=== PATIENT | female | born 1960 | race Caucasian/White ===

== ENCOUNTER 2019-12-08 09:54 | Outpatient (CLI) | payer OTHER, SELFPAY ==
--- NOTE | ~2019-12-08 | MM_ITS ---
EXAMINATION: MM screening laina BI w marylou HISTORY: Screening mammogram TECHNIQUE: Craniocaudal and mediolateral oblique 3-D tomosynthesis images were obtained and synthetic 2-D images were generated. CAD analysis was submitted and interpreted. COMPARISON: 11/30/2017 diagnostic right digital mammogram and limited right breast ultrasound are recei suma there are are present in the lower lumbar levels. A response 12/23/2017, 11/24/2016, 11/23/2015 bilateral digital screening mammogram examinations BREAST PARENCHYMAL COMPOSITION: The breasts are heterogeneously dense, which may obscure small masses . FINDINGS: There are 3 biopsy markers on the right; history of prior benign right breast biopsies in 2017. There is no evidence of suspicious mass, calcification, or architectural distortion to suggest malig norma in either breast. There has been no suspicious interval change. IMPRESSION: 1. No mammographic evidence of malignancy. 2. Recommend routine screening mammography in one year. BI-RADS Category 1: Negative Reviewed, dictated and finalized at location A.
== END 2019-12-08 09:55 | disposition home or self-care (01) ==
LOC: ANHIMG 09:56
PROVIDERS: PCP Family Medicine; Visit Provider Physician Assistant
DX: Z12.31 Encounter for screening mammogram for malignant neoplasm of breast (principal)
CPT/HCPCS: 77063; 77067

== ENCOUNTER → 2020-04-19 09:04 | Outpatient (CLI) | payer OTHER, SELFPAY ==
--- NOTE | ~2020-04-19 | MR_ITS ---
EXAMINATION: MR sacroiliac jterrie wo con DATE: 04/19/2020 09:48 INDICATION: Psoriatic arthritis. TECHNIQUE: Magnetic resonance imaging (MRI) of the sacroiliac joints was performed without intravenou s contrast. Sequences included sagittal PD-weighted FS FSE and axial oblique and coronal oblique T1-w eighted FSE and T2-weighted FS FSE. COMPARISON: Sacroiliac joint radiographs 11/17/2018 FINDINGS: There is lumbar dextroscoliosis and severe spondylosis. No fracture. There is mild osteoarthritis of the sacroiliac joints including osteophytes and mild subchondral edema-like marrow signal intensity. No erosions to suggest inflammatory arthropathy. 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 IMPRESSION: 1. Mild osteoarthritis of the sacroiliac joints. No evidence of inflammatory arthropathy. Reviewed, dictated and finalized at location A. IMPRESSION: 1. Mild osteoarthritis of the sacroiliac joints. No evidence of inflammatory ar thropathy.
== END ==
PROVIDERS: PCP Family Medicine; Visit Provider Internal Medicine
DX: L40.50 Arthropathic psoriasis, unspecified (principal); M47.898 Other spondylosis, sacral and sacrococcygeal region
CPT/HCPCS: 72197

== ENCOUNTER 2020-09-26 14:51 | Outpatient (CLI) | payer OTHER, SELFPAY ==
--- NOTE | ~2020-09-26 | DEXA_ITS ---
Bone Density Report Name: Anitra Booth Age: 59 Sex: Female Ethnicity: White Date of : 1960 Indication: osteopenia; prior fracture; postmenopausal Referring Provider: Pavel Veliz Study: Bone densitometry was performed. Exam Date: September 26, 2020 Accession number: [id number] Bone Density: Region BMD T-score Z-score Classification AP Spine (L1, L4) 0.994 -0.4 1.1 Normal Femoral Neck (Left) 0.574 -2.5 -1.1 Osteoporosis Total Hip (Left) 0.821 -1.0 0.1 Normal Total Hip Bilateral Avg 0.832 -0.9 0.2 Normal Femoral Neck (Right) 0.608 -2.2 -0.8 Osteopenia Total Hip (Right) 0.842 -0.8 0.2 Normal World Health Organization criteria for BMD impression classify patients as: Normal (T-score at or above -1.0), Osteopenia (T-score between -1.0 and -2.5), or Osteoporosis (T-score at or below -2.5). 10-year Fracture Risk: FRAX not reported because: Some T-score for Spine Total or Hip Total or Femoral Neck at or below -2.5 Previous Exams: Region Exam Age BMD T-score BMD Change BMD Change Date g/cm2 vs Baseline vs Previous AP Spine(L1, L4) 09/26/2020 59 0.994 -0.4 -0.042(-4.1%)# -0.042(-4.1%)# 12/11/2003 42 1.036 0.0 Total Hip(Left) 09/26/2020 59 0.821 -1.0 -0.008(-1.0%)# -0.008(-1.0%)# 12/11/2003 42 0.830 -0.9 Total Hip(Right) 09/26/2020 59 0.842 -0.8 0.036(4.5%)# 0.036(4.5%)# 12/11/2003 42 0.806 -1.1 *Denotes significance at 95% confidence level, LSC for AP Spine = 0.022 g/cm2, LSC for Total Hip = 0.027 g/cm2 Clinical Information Provided by Patient: Has had a low trauma fracture Has used the following medications: Boniva (i.e. ibandronate), Vitamin D, Calcium Patient maximum height was 67 Menopause Age: 49 Onset of menses at age 14 Number of children 2 Impression: The patient has established osteoporosis, based on the Left Femoral Neck T-score and the existence of a prior fracture. The patient has risk factors, including: previous fracture. No significant bone loss was observed. Discussion: HIGH RISK OF FRACTURE. BONE DENSITY IS UNDESIRABLY LOW AT ONE OR MORE SKELETAL SITES, CONSISTENT WITH POSTMENOPAUSAL OSTEOPOROSIS. This patient's lowest T-score, in a patient who has previously fractured, meets the World Health Organization's (WHO) criteria for severe osteoporosis. In untreated patients, the risk of osteoporotic fracture increases approximately two-fold for each 1.0 SD decrease in T-score. Low bone density is not the only risk fact
== END 2020-09-26 14:52 | disposition home or self-care (01) ==
LOC: ANHIMG 14:52
PROVIDERS: PCP Family Medicine; Visit Provider Family Medicine
DX: M80.00XA Age-related osteoporosis with current pathological fracture, unspecified site, initial encounter for fracture (principal); M85.851 Other specified disorders of bone density and structure, right thigh
CPT/HCPCS: 77080

== ENCOUNTER 2020-10-23 08:36 | Emergency (ER) | payer OTHER, SELFPAY ==
--- NOTE | 2020-10-23 08:41 | ED.GENADULT ---
HPI - General Adult General Chief complaint: Back Pain/Injury Stated complaint: back pain/leg pain Time Seen by Provider: 10/23/20 08:41 Source: patient Mode of arrival: ambulatory Limitations: no limitations History of Present Illness HPI narrative: 59-year-old female patient presents to the [facility] with complaints of right-sided low back pain for the past 5 days. Patient states she does have history of psoriatic arthritis. Patient states that about 5 days ago she was reaching down in the cupboard to get something and felt something pull. Patient states that since then she has been having pain in the right buttock area that radiates down to the leg. Patient states it especially hurts more when she is standing. Patient states she has been trying taking Tylenol and doing a heating pad. Patient states she also called her primary doctor and got a course of steroids and today is the last day on it. Patient states she was starting to feel better and then she watched her granddaughter yesterday did a lot of bending over and picking her up and states that is now flared back up. Related Data Home Medications Medication Instructions Recorded Confirmed calcium carbonate-vitamin D3 600 cap PO 07/12/19 10/02/20 mg calcium-200 unit capsule cyanocobalamin (vitamin B-12) 1,000 mcg PO DAILY 07/12/19 10/02/20 1,000 mcg capsule vitamin E (dl, acetate) 450 mg 1,000 unit PO DAILY 07/12/19 10/02/20 (1,000 unit) capsule loratadine 10 mg capsule 10 mg PO DAILY 12/02/19 10/02/20 omega 3-dsn-mhf-fish oil 60 mg-90 1 cap PO DAILY 12/02/19 10/02/20 mg-500 mg capsule Allergies Allergy/AdvReac Type Severity Reaction Status Date / Time No Known Allergies Allergy Verified 10/02/20 12:41 Review of Systems Review of Systems: Narrative: CONSTITUTIONAL: Denies fever, chills, or sweats. EYES: Denies visual changes, redness, or discharge. ENT: Denies rhinorrhea, congestion, sore throat, or otalgia. CARDIOVASCULAR: Denies chest pain, palpitations, or edema. RESPIRATORY: Denies cough or dyspnea. GASTROINTESTINAL: Denies abdominal pain, nausea, vomiting, or diarrhea. GENITOURINARY: Denies dysuria or hematuria. SKIN: Denies rash or itching. MUSCULOSKELETAL: Positive right-sided back pain, denies joint pain, or myalgia. NEUROLOGIC: Denies headache, numbness, or weakness. PSYCHIATRIC: Denies anxiety or depression. [facility] Past Medical History Medical History (Updated 10/23/20 @ 09:00 by JONNATHAN Ng) Age-related osteoporosis with current pathological fracture, unspecified site, initial encounter for fracture Allergies Arthritis Bartholin's cyst Depression Fibrocystic breast Hemorrhoids Osteoporosis Thyroid disease Surgical History Surgical History H/O breast biopsy Family History Family History Mother Hypertension Family history of cardiovascular disease Family history of lung cancer Father Acute myocardial infarction, Onset Age: 53 Family history of cardiovascular disease Hypertension Family history of coronary artery disease Grandparent Hypertension Family history of cardiovascular disease Cerebrovascular accident Social History Social History Smoking status: Never smoker Alcohol intake: current Comments At the time of my signature I agree with nursing past medical history, surgical, social, and family history. There is no relevant family history pertinent to the presenting complaint. Exam Narrative: Exam Narrative: GENERAL: Well-appearing, well-nourished, and in no acute distress. HEAD: Normocephalic, atraumatic. EYES: PERRLA and EOMI. ENT: Nares clear, no rhinorrhea or epistaxis. Mucous membranes moist. NECK: Supple. No lymphadenopathy CHEST: Clear to auscultation. No respiratory distress. HEART: Regular rate and rhythm. No murmur h
[2020-10-23 08:49] VITALS: BP 160/73; PULSE 72; RESP 16; TEMP 37.2; O2SAT 100
== END 2020-10-23 09:07 | disposition home or self-care (01) ==
PROVIDERS: Emergency Provider Nurse Practitioner Family; PCP Family Medicine
DX: M54.41 Lumbago with sciatica, right side (principal); M81.0 Age-related osteoporosis without current pathological fracture; L40.50 Arthropathic psoriasis, unspecified
CPT/HCPCS: 99213; G0463

== ENCOUNTER 2020-10-30 14:57 | Outpatient (CLI) | payer OTHER, SELFPAY ==
--- NOTE | ~2020-10-30 | XR_ITS ---
EXAMINATION: XR lumbar spine 2-3V DATE: 10/30/2020 15:13 INDICATION: Right-sided low back pain TECHNIQUE: Anteroposterior and lateral views of the lumbar spine, and cone-down lateral view of the l umbosacral junction were obtained. COMPARISON: 11/17/2018 FINDINGS: There are 20 degrees of stable dextroscoliosis of the lumbar spine. There is severe loss of intervertebral disc space height at L2-3 and L3-4, unchanged. Mild loss of intervertebral disc space height is present at L1-2. Bone alignment is normal. There is no fracture. There is [id number] facet osteoarthritis. IMPRESSION: 1. Severe lumbar spondylosis without acute findings or significant interval change. Reviewed, dictated and finalized at location A. IMPRESSION: 1. Severe lumbar spondylosis without acute findings or significant interval barb nge.
== END 2020-10-30 14:58 | disposition home or self-care (01) ==
PROVIDERS: PCP Family Medicine; Visit Provider Physician Assistant
DX: M47.816 Spondylosis without myelopathy or radiculopathy, lumbar region (principal)
CPT/HCPCS: 72100

== ENCOUNTER → 2020-12-10 12:18 | Outpatient (CLI) | payer OTHER, SELFPAY ==
--- NOTE | ~2020-12-10 | MR_ITS ---
EXAMINATION: MR lumbar spine wo con EXAM DATE: 12/10/2020 13:01 INDICATION: M54.41 - Lumbago with sciatica, right side lumbago with sciatica. Right leg pain. States bending injury. Symptoms 8 weeks. TECHNIQUE: Multi-sequential, multiplanar MR images of the lumbar spine were obtained without contrast . Sagittal T1, T2, T2 fat saturation images. Axial T2 weighted images. There is no prior study for comparison. FINDINGS: There is moderate upper lumbar dextroscoliosis. Moderate to severe disc disease at L2-3 and L3-4. Moderate loss of the L1-2 and L5-S1 disc height, mild to moderate at L4-5. The conus medullari s terminates at the T12-L1 level and has normal signal intensity and morphology. Tarlov cyst posteri or to the S2 segment. Scattered small vertebral body hemangiomata. Paraspinal soft tissue is unremark able. Level by level evaluation: T12-L1: Disc does not extend beyond the endplate margin. Facet arthropathy: None. Neural foraminal stenosis: No stenosis. Central canal stenosis: No stenosis. L1-L2: There is a mild to moderate diffuse disc bulge. Facet arthropathy: Mild. Neural foraminal stenosis: Mild left. Central canal stenosis: No stenosis. L2-L3: There is a mild to moderate diffuse disc bulge. Facet arthropathy: Mild to moderate. Neural foraminal stenosis: Moderate left, no right. Central canal stenosis: Mild. L3-L4: There is a mild to moderate diffuse disc bulge. Facet arthropathy: Mild to moderate. Neural foraminal stenosis: Moderate left, mild right. Central canal stenosis: Mild. L4-L5: There is a mild to moderate diffuse disc bulge. Facet arthropathy: Moderate . Ligamentum flavum enlargement. Neural foraminal stenosis: Moderate right, mild to moderate left. Central canal stenosis: Mild to moderate. L5-S1: There is a mild diffuse disc bulge. Facet arthropathy: Mild to moderate right, mild left. Neural foraminal stenosis: Mild to moderate right, mild left. Central canal stenosis: Mild. IMPRESSION: 1. Moderate upper lumbar dextroscoliosis and left neural foraminal stenosis L2-3 and L3-4. 2. Moderate right neural foraminal stenosis at L4-5. 3. Less spondylosis above. Reviewed, dictated and finalized at location A. IMPRESSION: 1. Moderate upper lumbar dextroscoliosis and left neural foraminal stenosis L2 -3 and L3-4. 2. Moderate right neural foraminal stenosis at L4-5. 3. Less spondylosis above.
== END ==
PROVIDERS: PCP Family Medicine; Visit Provider Physician Assistant
DX: M54.41 Lumbago with sciatica, right side (principal); M47.817 Spondylosis without myelopathy or radiculopathy, lumbosacral region; M48.07 Spinal stenosis, lumbosacral region
CPT/HCPCS: 72148

== ENCOUNTER 2020-12-10 14:24 | Outpatient (CLI) | payer OTHER, SELFPAY ==
--- NOTE | ~2020-12-10 | MM_ITS ---
EXAMINATION: MM screening laina BI w marylou HISTORY: Screening TECHNIQUE: Craniocaudal and mediolateral oblique 3-D tomosynthesis images were obtained and synthetic 2-D images were generated. CAD analysis was submitted and interpreted. COMPARISON: No prior mammogram is available for comparison at this institution. BREAST PARENCHYMAL COMPOSITION: Comparison to multiple prior studies sequentially, with oldest review ed study dated 11/23/2015. FINDINGS: There is no evidence of suspicious mass, calcification, or architectural distortion to sugg est malignancy in either breast. There has been no suspicious interval change. IMPRESSION: 1. No mammographic evidence of malignancy. 2. Recommend routine screening mammography in one year. BI-RADS Category 1: Negative Reviewed, dictated and finalized at location A.
== END 2020-12-10 14:25 | disposition home or self-care (01) ==
LOC: ANHIMG 14:25
PROVIDERS: PCP Family Medicine; Visit Provider Family Medicine
DX: Z12.31 Encounter for screening mammogram for malignant neoplasm of breast (principal)
CPT/HCPCS: 77063; 77067

== ENCOUNTER → 2021-12-27 13:43 | Outpatient (CLI) | payer OTHER, SELFPAY ==
--- NOTE | ~2021-12-27 | MR_ITS ---
EXAMINATION: MR hip RT wo con DATE: 12/27/2021 14:42 INDICATION: Low back pain and sciatica. TECHNIQUE: Magnetic resonance imaging (MRI) of the right hip was performed without intravenous contr ast. Sequences included full-field axial PD-weighted FS FSE and T1-weighted FSE, coronal of the pelvi s with PD-weighted FS FSE, T2-weighted FSE and T1-weighted FSE, small field of view of the right hip with axial PD-weighted FS FSE, sagittal PD-weighted FS FSE, coronal PD-weighted FS FSE and coronal T2 weighted FSE. Additional radial T1-weighted FGR oriented orthogonal to the acetabular rim were obt ained for evaluation of the labrum. COMPARISON: Pelvis and bilateral hip radiographs dated 11/17/2018 FINDINGS: Bones/labrum/cartilage: Mild lumbar dextroscoliosis with severe spondylosis. No fracture, avascular necrosis or pathologic ma rrow replacing process. Small tear at the 1:00 position of the anterosuperior glenoid labrum. Mild pa rtial thickness cartilage loss with smooth chondral surface and without degenerative subchondral key ges along the posterior aspect of the joint space. Fluid: Symmetric physiologic amount of fluid within both hip joints. Soft tissues: Normal and symmetric muscle bulk and signal in the pelvis and visualized proximal thighs. Mild tendin opathy without discrete tears at the bilateral gluteus minimus tendons. The iliopsoas, remaining glut eal and proximal hamstring tendons are normal. Limited evaluation of visceral organs of the pelvis is unremarkable. No pathologically enlarged pelvic/inguinal lymphadenopathy. IMPRESSION: 1. Mild lumbar dextroscoliosis with severe spondylosis. 2. Mild right hip osteoarthritis with small tear at the anterosuperior labrum. 3. Mild bilateral gluteus minimus tendinopathy without discrete tear. Reviewed, dictated and finalized at location B.
== END ==
PROVIDERS: PCP Family Medicine
DX: M16.11 Unilateral primary osteoarthritis, right hip (principal); M54.40 Lumbago with sciatica, unspecified side; M41.9 Scoliosis, unspecified
CPT/HCPCS: 73721

== ENCOUNTER 2022-01-08 14:28 | Outpatient (CLI) | payer OTHER, SELFPAY ==
--- NOTE | ~2022-01-08 | MM_ITS ---
EXAMINATION: MM screening laina BI w marylou HISTORY: Screening TECHNIQUE: Craniocaudal and mediolateral oblique 3-D tomosynthesis images were obtained and synthetic 2-D images were generated. CAD analysis was submitted and interpreted. COMPARISON: Comparison to multiple prior studies sequentially, with oldest reviewed study dated 11/22. BREAST PARENCHYMAL COMPOSITION: The breasts are heterogenously dense, which may obscure small masses FINDINGS: There is no evidence of suspicious mass, calcification, or architectural distortion to sugg est malignancy in either breast. There has been no suspicious interval change. IMPRESSION: 1. No mammographic evidence of malignancy. 2. Recommend routine screening mammography in one year. BI-RADS Category 1: Negative Reviewed, dictated and finalized at location A.
== END 2022-01-08 14:29 | disposition home or self-care (01) ==
LOC: ANHIMG 14:29
PROVIDERS: PCP Family Medicine; Visit Provider Family Medicine
DX: Z12.31 Encounter for screening mammogram for malignant neoplasm of breast (principal)
CPT/HCPCS: 77063; 77067

== ENCOUNTER 2022-07-02 08:00 | Outpatient (NON) | payer OTHER, SELFPAY | END 2022-07-02 08:01 | disposition home or self-care (01) | PROVIDERS: PCP Emergency Medicine; Visit Provider Internal Medicine Gastroenterology | DX: K21.9 Gastro-esophageal reflux disease without esophagitis (principal) | CPT/HCPCS: 88305 ==

== ENCOUNTER 2022-07-02 12:20 | Day surgery (SDC) | payer OTHER, SELFPAY ==
[2022-04-21 08:51] VITALS: BMI 21.9
[2022-06-24 11:39] VITALS: BMI 21.0
--- NOTE | 2022-07-01 15:31 | PM.HPGS ---
History of Present Illness History of Present Illness Consent: Risks, benefits, and alternatives have been discussed and questions answered. Patient agrees to proceed with procedure. Chief complaint: Epigastric Pain Narrative: Anitra Booth is a 61 year old female referred for investigation of epigastric pain Review of Systems Review of Systems: All systems reviewed & are unremarkable except as noted in HPI and below PMFSH Past Medical History Medical History Age-related osteoporosis with current pathological fracture, unspecified site, initial encounter for fracture Allergies Arthritis Bartholin's cyst Depression Fibrocystic breast Hemorrhoids Hyperlipidemia Hypothyroidism Osteoporosis Psoriatic arthritis Thyroid disease Surgical History Surgical History H/O breast biopsy Family History Family History Mother Hypertension Family history of cardiovascular disease Family history of lung cancer Father Acute myocardial infarction, Onset Age: 53 Family history of cardiovascular disease Hypertension Family history of coronary artery disease Grandparent Hypertension Family history of cardiovascular disease Cerebrovascular accident Social History Social History Smoking status: Never smoker Second hand tobacco smoke exposure: No Alcohol intake: never Substance use: never Substance use type: does not use Living arrangements: with family Gender identity (if verbalized by the patient): Female Spiritual care concerns: No Meds Home Medications and Allergies Home Medications Medication Instructions Recorded Confirmed Type calcium carbonate 600 mg-vitamin 1 cap PO DAILY 07/12/19 07/02/22 History D3 5 mcg (200 unit) capsule (Calcium 600 + D(3)) cyanocobalamin (vitamin B-12) 1,000 mcg PO DAILY 07/12/19 07/02/22 History 1,000 mcg capsule vitamin E (dl, acetate) 450 mg 1,000 unit PO DAILY 07/12/19 07/02/22 History (1,000 unit) capsule diclofenac sodium 1 % topical gel 2 gm topical QID #100 grams 12/02/19 07/02/22 Rx (Voltaren) loratadine 10 mg capsule 10 mg PO PRN PRN Allergic Symptoms 12/02/19 07/02/22 History omega 4-sla-jtt-fish oil 60 mg-90 1 cap PO DAILY 12/02/19 07/02/22 History mg-500 mg capsule (Fish Oil) levothyroxine 50 mcg tablet See Rx Instructions .Route 09/09/21 07/02/22 Rx .COMPLEX #90 tabs sertraline 50 mg tablet See Rx Instructions .Route 09/09/21 07/02/22 Rx .COMPLEX #90 tabs folic acid 1 mg tablet See Rx Instructions .Route 10/17/21 07/02/22 Rx .COMPLEX #90 tabs methotrexate sodium 2.5 mg tablet See Rx Instructions .Route 10/23/21 07/02/22 Rx .COMPLEX #55 tabs atorvastatin 20 mg tablet See Rx Instructions .Route 12/04/21 07/02/22 Rx .COMPLEX #90 tabs omeprazole 40 mg capsule,delayed See Rx Instructions .Route 01/10/22 07/02/22 Rx release .COMPLEX #90 caps celecoxib 200 mg capsule (Celebrex) 200 mg PO DAILY #90 caps 03/04/22 07/02/22 Rx ibandronate 150 mg tablet (Boniva) 150 mg PO MONTHLY #3 tabs 05/26/22 07/02/22 Rx methocarbamol 750 mg tablet 750 mg PO PRN PRN Pain 06/24/22 07/02/22 History Allergies Allergy/AdvReac Type Severity Reaction Status Date / Time No Known Allergies Allergy Verified 07/02/22 12:51 Exam Const: General: alert Orientation/consciousness: patient oriented x3 Resp: Auscultation: clear to auscultation bilaterally Cardio: Rhythm: regular rhythm GI: GI Palp: Yes Soft to palpation and No Tenderness to palpation present (GI) Neuro: General: patient oriented x3 Assessment and Plan Assessment and plan (1) Epigastric pain: Code(s): R10.13 - Epigastric pain Status: Acute Assessment and Plan: EGD with possible biopsy or dilatation or cautery.
--- NOTE | 2022-07-02 08:50 | WPDANESEPPF ---
Anes - Initial Pre Proc Eval Procedure: Operation Date: 07/02/22 14:00 Proposed Procedures p Esophagogastroduodenoscopy - Cullen Eaton MD Date/Time: 07/02/22 08:50 Surgeon: Cullen Eaton MD Pre Op Diagnosis: Epigastric Pain Patient Data Age: 61 Gender: F Height: 1.7 m Weight: 61 kg Allergies Allergy/AdvReac Type Severity Reaction Status Date / Time No Known Allergies Allergy Verified 07/02/22 12:51 Home Medications Medication Instructions Recorded Confirmed Type calcium carbonate 600 mg-vitamin 1 cap PO DAILY 07/12/19 07/02/22 History D3 5 mcg (200 unit) capsule (Calcium 600 + D(3)) cyanocobalamin (vitamin B-12) 1,000 mcg PO DAILY 07/12/19 07/02/22 History 1,000 mcg capsule vitamin E (dl, acetate) 450 mg 1,000 unit PO DAILY 07/12/19 07/02/22 History (1,000 unit) capsule diclofenac sodium 1 % topical gel 2 gm topical QID #100 grams 12/02/19 07/02/22 Rx (Voltaren) loratadine 10 mg capsule 10 mg PO PRN PRN Allergic Symptoms 12/02/19 07/02/22 History omega 7-njv-dwn-fish oil 60 mg-90 1 cap PO DAILY 12/02/19 07/02/22 History mg-500 mg capsule (Fish Oil) levothyroxine 50 mcg tablet See Rx Instructions .Route 09/09/21 07/02/22 Rx .COMPLEX #90 tabs sertraline 50 mg tablet See Rx Instructions .Route 09/09/21 07/02/22 Rx .COMPLEX #90 tabs folic acid 1 mg tablet See Rx Instructions .Route 10/17/21 07/02/22 Rx .COMPLEX #90 tabs methotrexate sodium 2.5 mg tablet See Rx Instructions .Route 10/23/21 07/02/22 Rx .COMPLEX #55 tabs atorvastatin 20 mg tablet See Rx Instructions .Route 12/04/21 07/02/22 Rx .COMPLEX #90 tabs omeprazole 40 mg capsule,delayed See Rx Instructions .Route 01/10/22 07/02/22 Rx release .COMPLEX #90 caps celecoxib 200 mg capsule (Celebrex) 200 mg PO DAILY #90 caps 03/04/22 07/02/22 Rx ibandronate 150 mg tablet (Boniva) 150 mg PO MONTHLY #3 tabs 05/26/22 07/02/22 Rx methocarbamol 750 mg tablet 750 mg PO PRN PRN Pain 06/24/22 07/02/22 History Patient hx anesthesia problems: none Family hx anesthesia problems: none Results Review: All pre-operative results and documents have been reviewed as part of the pre-operative evaluation. [facility] Past Medical History Medical History (Updated 07/02/22 @ 08:51 by Jovany Fink, ) Age-related osteoporosis with current pathological fracture, unspecified site, initial encounter for fracture Allergies Arthritis Bartholin's cyst Depression Fibrocystic breast Hemorrhoids Hyperlipidemia Hypothyroidism Osteoporosis Psoriatic arthritis Thyroid disease Surgical History Surgical History H/O breast biopsy Family History Family History Mother Hypertension Family history of cardiovascular disease Family history of lung cancer Father Acute myocardial infarction, Onset Age: 53 Family history of cardiovascular disease Hypertension Family history of coronary artery disease Grandparent Hypertension Family history of cardiovascular disease Cerebrovascular accident Social History Social History Smoking status: Never smoker Second hand tobacco smoke exposure: No Alcohol intake: never Substance use: never Substance use type: does not use Living arrangements: with family Gender identity (if verbalized by the patient): Female Spiritual care concerns: No Anes - Eval Final PreProcedure Day of Procedure 07/02/22 08:50 Patient weight: normal Heart: regular rate and rhythm Lungs: clear to auscultation and normal air movement Airway: Mallampati scale class II Neurological: alert and oriented Last oral intake: >/= 8 hours ASA classification: II Emergent: no Anesthetic plan: proceed Anesthesia type and monitoring: general GIVS and standard monitoring Results Review: All pre-operative results and doc
[2022-07-02 12:50] VITALS: BP 131/66; PULSE 70; RESP 20; TEMP 36.1; O2SAT 100
[2022-07-02] MEDS: LACTATED RINGERS 1,000 ML 150 ML IV CONT (13:07)
[2022-07-02 14:23] VITALS: BP 131/83; PULSE 83; RESP 16; O2SAT 99
--- NOTE | 2022-07-02 14:31 | WPDANESPN ---
Anes - Prog Note Post-Op Date/Time: 07/02/22 14:31 Cardiovascular status: normal Respiratory status: normal Airway patency: baseline Mental status: baseline Post-Op hydration status: normal Vital Signs: Last Vital Signs Temp 36.1 C L 07/02/22 12:50 Pulse 70 07/02/22 12:50 Resp 20 07/02/22 12:50 BP 131/66 07/02/22 12:50 Pulse Ox 100 07/02/22 12:50 O2 Del Method Room Air 07/02/22 12:50 Pain Score (VAS): 0 I/O: Intake & Output 07/01/22 07/02/22 07/02/22 23:59 07:59 15:59 Intake Total 800 Balance 800 Post-procedural complaints: none Patient Feedback: Patient satisfied with anesthetic care. Other Findings: Patient vital signs back to baseline. Patient denies nausea and vomiting. Patient's pain under control. Patient OK for discharge.
[2022-07-02 14:33] VITALS: BP 141/89; PULSE 69; RESP 14; O2SAT 99
[2022-07-02 14:43] VITALS: BP 140/67; PULSE 67; RESP 15; O2SAT 98
== END 2022-07-02 15:08 | disposition home or self-care (01) ==
PROVIDERS: PCP Emergency Medicine; Visit Provider Internal Medicine Gastroenterology
PROC: 0DJ08ZZ Inspection of Upper Intestinal Tract, Via Natural or Artificial Opening Endoscopic (ICD-10-PCS; CPT 43235; principal; 2022-07-02 14:00)
DX: K21.9 Gastro-esophageal reflux disease without esophagitis (principal)
CPT/HCPCS: 43239

== ENCOUNTER 2022-07-19 16:15 | Emergency (ER) | payer OTHER, SELFPAY ==
--- NOTE | ~2022-07-19 | CT_ITS ---
EXAMINATION: CT brain wo con DATE: 07/20/2022 02:25 INDICATION: severe new onset bilat KENNY . TECHNIQUE: Computed tomography (CT) of the head was performed without intravenous contrast. The mA wa s adjusted according to patient size. Iterative reconstruction technique was employed. The dose-lengt h product was 605.33 mGy-cm. COMPARISON: None. FINDINGS: No acute intracranial hemorrhage or extra-axial fluid collection. No hydrocephalus, mass, or herniation. No acute ischemic infarct. Unremarkable dural venous sinus attenuation. No acute osseous abnormality. The aerated spaces are clear. IMPRESSION: No acute intracranial process. Reviewed, dictated and finalized at location K. D GUIDANCE COUNSELOR
--- NOTE | ~2022-07-19 | CT_ITS ---
EXAMINATION: CTA chest PE protocol DATE: 07/20/2022 02:26 INDICATION: elevated dimer 0.59, medial CP radiating into jaw TECHNIQUE: Computed tomography angiography (CTA) of the chest was performed with 100 mL Omnipaque-350 intravenous contrast timed to evaluate the pulmonary arteries. Coronal maximum intensity projection 3D-reconstructions were created by the technologist. The dose-length product (DLP) was 154.64 mGy-cm. Automated exposure control and iterative reconstruction technique were employed. COMPARISON: 11/02/2014 and 07/17/2014, x-ray chest 07/19/2022. FINDINGS: Lung parenchyma and airways: Dependent atelectasis. Pleura: Unremarkable. Thoracic inlet, axillae and chest wall: Unremarkable. Thoracic aorta: Mild arch ectasia. Mediastinum: Normal. Heart and pericardium: Normal. Coronary artery calcifications: Absent. Upper abdomen: No significant finding. Bones: No acute osseous finding. Incidental small left adrenal myelolipoma. Pulmonary arteries: Study quality: Adequate. No pulmonary emboli detected. IMPRESSION: No CT evidence of acute pulmonary embolus. Reviewed, dictated and finalized at location K. FABRICATING MACHINE TENDER
--- NOTE | ~2022-07-19 | XR_ITS ---
EXAMINATION: XR chest 2V Exam Date/Time: 07/19/2022 17:33 PIPER INSTALLER HISTORY: CP, HEAD JAW PAIN, HIGH BLOOD PRESSURE FOR 1 DAY. Comparison: 06/06/2015. RESULT: Lines, tubes, and devices: Biopsy markers in the right breast. Lungs and pleura: Emphysematous/senescent change in the lungs. Cardiomediastinal silhouette: Stable. Other: No acute osseous or upper abdominal finding. IMPRESSION: No acute cardiopulmonary process. Reviewed, dictated and finalized at location K. R INSTALLER
--- NOTE | 2022-07-19 16:16 | ECG_ITS ---
Measurements Intervals [place] Rate: 76 P: 36 [place]: 126 QRS: 73 QRSD: 88 T: 69 QT: 391 QTc: 441 Interpretive Statements SINUS RHYTHM WITH SINUS ARRHYTHMIA POSSIBLE RIGHT VENTRICULAR CONDUCTION DELAY BORDERLINE ECG NO PREVIOUS ECG AVAILABLE FOR COMPARISON Electronically Signed On 07-20-2022 15:40:57 [employer]LY[employer] by Josh Young M.D.
[2022-07-19 16:41] LABS: Basophils Absolute Auto 0.1 K/mm3 (0.0-0.1); Basophils Percent Auto 0.9 % (0.2-1.2); Eosinophils Absolute Auto 0.1 K/mm3 (0-0.3); Eosinophils Percent Auto 1.1 % (0-4.4); Hematocrit 45.5 % (37.0-47.0); Hemoglobin 15.3 g/dL (12.0-15.0); Immature Granulocyte Absolute 0.03 K/mm3 (0.00-0.031); Immature Granulocyte Percent A 0.3 % (0-0.5); Lymphocytes Absolute Auto 2.32 K/mm3 (0.9-3.2); Lymphocytes Percent Auto 26.2 % (18.3-44.2); Mean Corpuscular HGB Conc 33.6 g/dl (32-36); Mean Corpuscular Hemoglobin 31.7 pg (26-34); Mean Corpuscular Volume 94.2 fl (80-100); Mean Platelet Volume 10.1 fl (7.4-10.4); Monocytes Absolute Auto 0.7 K/mm3 (0.1-0.6); Monocytes Percent Auto 8.2 % (2.6-8.5); Neutrophils Absolute Auto 5.6 K/mm3 (1.3-6.7); Neutrophils Percent Auto 63.3 % (45.5-73.1); Platelet Count Result 270 k/mm3 (150-375); Red Blood Count 4.83 M/mm3 (4.2-5.4); White Blood Count 8.9 K/mm3 (4.5-10.0)
[2022-07-19 16:50] LABS: Alanine Aminotransferase 28 U/L (6-35); Albumin Level 4.8 g/dL (3.5-5.1); Alkaline Phosphatase 85 U/L (38-126); Anion Gap 8 mmol/L (8-16); Aspartate Amino Transferase 24 U/L (14-36); Bilirubin,Total 0.4 mg/dL (0.2-1.3); Blood Urea Nitrogen 25 mg/dL (7-17); Calcium 10.1 mg/dL (8.4-10.2); Carbon Dioxide 25 mmol/L (22-30); Chloride 102 mmol/L (98-107); Estimated Glomerular Filt Rate > 60; Glucose 101 mg/dL (65-110); Lipase 83 U/L (23-300); Potassium 3.5 mmol/L (3.4-5.0); Sodium 135 mmol/L (137-145)
[2022-07-19 16:59] VITALS: BP 175/99; PULSE 78; RESP 20; TEMP 37; O2SAT 100
[2022-07-19 17:02] LABS: Troponin I < 0.012 ng/mL (0.000-0.034)
[2022-07-19 17:23] LABS: Prothrombin Time 12.6 Seconds (11.1-14.7)
[2022-07-19 17:24] LABS: Partial Thromboplastin Time 25.5 SECONDS (22.3-36.8)
[2022-07-19 19:21] VITALS: BP 152/93; PULSE 74; RESP 16; O2SAT 99
[2022-07-19 21:21] VITALS: BP 147/67; PULSE 77; RESP 18; O2SAT 97
[2022-07-19 22:07] LABS: Troponin I < 0.012 ng/mL (0.000-0.034)
--- NOTE | 2022-07-20 01:00 | ED.CHESTPAIN ---
HPI - Chest Pain General Chief Complaint: Chest Pain Stated Complaint: chest pain Time Seen by Provider: 07/20/22 00:30 History of Present Illness HPI narrative: Patient is a 61-year-old female here for evaluation of chest pain today. Patient states that while she was leaving [employer] she had discomfort in her chest that lasted for several seconds and moved into her jaw. No history of previous similar sensation. Denies associated shortness of breath. Patient wanted to be evaluated due to family history of [place]. Currently asymptomatic aside from headache. She has had a negative stress test in the past; denies cardiac catheterization. No leg swelling, fevers or chills, nausea or vomiting, visual changes. Related Data Home Medications Medication Instructions Recorded Confirmed calcium carbonate 600 mg-vitamin 1 cap PO DAILY 07/12/19 07/02/22 D3 5 mcg (200 unit) capsule (Calcium 600 + D(3)) cyanocobalamin (vitamin B-12) 1,000 mcg PO DAILY 07/12/19 07/02/22 1,000 mcg capsule vitamin E (dl, acetate) 450 mg 1,000 unit PO DAILY 07/12/19 07/02/22 (1,000 unit) capsule loratadine 10 mg capsule 10 mg PO PRN PRN Allergic Symptoms 12/02/19 07/02/22 omega 4-pae-fvd-fish oil 60 mg-90 1 cap PO DAILY 12/02/19 07/02/22 mg-500 mg capsule (Fish Oil) methocarbamol 750 mg tablet 750 mg PO PRN PRN Pain 06/24/22 07/02/22 Allergies Allergy/AdvReac Type Severity Reaction Status Date / Time No Known Allergies Allergy Verified 07/02/22 12:51 Review of Systems Review of Systems: Gen.: Denies fevers or chills Eyes: Denies eye pain or visual change ENT: Denies congestion Respiratory: Denies shortness of breath or cough CV: Reports chest pain. GI: Denies abdominal pain nausea, emesis or diarrhea : denies burning, urgency, frequency or hematuria Musculoskeletal: Denies back pain or muscle pain Neuro: Denies numbness, tingling, weakness or focal weakness Skin: Denies rash Except as documented, all other systems reviewed and negative PMFSH Past Medical History Medical History Age-related osteoporosis with current pathological fracture, unspecified site, initial encounter for fracture Allergies Arthritis Bartholin's cyst Depression Fibrocystic breast Hemorrhoids Hyperlipidemia Hypothyroidism Osteoporosis Psoriatic arthritis Thyroid disease Surgical History Surgical History H/O breast biopsy Family History Family History Mother Hypertension Family history of cardiovascular disease Family history of lung cancer Father Acute myocardial infarction, Onset Age: 53 Family history of cardiovascular disease Hypertension Family history of coronary artery disease Grandparent Hypertension Family history of cardiovascular disease Cerebrovascular accident Social History Social History Smoking status: Never smoker Second hand tobacco smoke exposure: No Alcohol intake: never Substance use: never Substance use type: does not use Gender identity (if verbalized by the patient): Female Spiritual care concerns: No Exam Narrative: APPEARANCE: Well appearing, no pain in distress, well-nourished. Head: Normocephalic and atraumatic. EYES: PERRLA/EOMI, conjunctivae clear NOSE: No nasal drainage EARS: External ear normal in appearance THROAT: Oropharynx is clear. Mucous membranes are moist. NECK: Supple. No adenopathy, no masses. RESPIRATORY: Airway patent, respirations nonlabored. Clear to auscultation bilaterally, no rales, rhonchi, wheezing. CARDIOVASCULAR: Regular rate and rhythm without murmurs, rubs, or gallops. ABDOMINAL: Normoactive bowel sounds. Soft, nontender, nondistended. No rebound tenderness or guarding. MUSCULOSKELETAL: Extremities are warm and well-perfused. Moves
[2022-07-20] MEDS: ACETAMINOPHEN 325 MG TABLET 650 MG PO (01:18)
[2022-07-20 01:54] LABS: D Dimer 0.59 ug/mL (<0.48)
== END 2022-07-20 03:08 | disposition home or self-care (01) ==
PROVIDERS: Emergency Medicine; Emergency Provider Physician Assistant; PCP Emergency Medicine
DX: R07.89 Other chest pain (principal); E03.9 Hypothyroidism, unspecified; E78.5 Hyperlipidemia, unspecified
CPT/HCPCS: 36415; 70450; 71046; 71275; 80053; 83690; 84484; 85025; 85380; 85610; 85730; 93005; 99284; A9270; Q9967

== ENCOUNTER 2022-08-06 07:53 | Outpatient (CLI) | payer OTHER, SELFPAY ==
--- NOTE | 2022-08-06 08:06 | EST_ITS ---
Patient Info Name: Anitra Booth Age: 61 years : 1960 Gender: Female Ht: 67 in Wt: 135 lbs BSA: 1.70 m2 HR: 79 bpm BP: 151 / 87 mmHg Heart Rhythm: Sinus Rhythm Exam Date: 08/06/2022 8:27 AM Exam Location: [facility] Stress Patient Status: Outpatient Admit Date: 08/06/2022 Staff Ordering Physician: Wm Larsen MD Attending Provider: Wm Larsen MD Exercise Technologist: Sarah Garvin CT Exercise Physician: Sudhakar Olivas DO Exam Type: CA stress test treadmill Study Info Indications R07.9 - Chest pain, unspecified A treadmill exercise stress test was performed. Summary 1. 1. Negative Servando exercise stress test for ischemic ST changes by ECG criteria. 2. 2. Good functional capacity, achieving 7 METs of workload. 3. 3. Baseline hypertension. 4. 4. Appropriate HR response to exercise. 5. 5. Appropriate HR recovery at 1 minute post exercise. 6. 6. No imaging with stress testing. 7. 7. Patient informed of the above results. Protocol: Servando Stress ECG Details Stage: REST Duration (min): 1 min : 12 sec Speed (mph): 0.0 Grade (%): 0 HR (bpm): 79 SBP (mmHg): 151 DBP (mmHg): 87 METS: --- Stage: REST Duration (min): 6 min : 23 sec Speed (mph): 0.0 Grade (%): 0 HR (bpm): 89 SBP (mmHg): 151 DBP (mmHg): 87 METS: --- Stage: STAGE 1 Duration (min): 1 min : 0 sec Speed (mph): 1.7 Grade (%): 10 HR (bpm): 104 SBP (mmHg): 151 DBP (mmHg): 87 METS: --- Stage: STAGE 1 Duration (min): 2 min : 0 sec Speed (mph): 1.7 Grade (%): 10 HR (bpm): 122 SBP (mmHg): 151 DBP (mmHg): 87 METS: --- Stage: STAGE 1 Duration (min): 3 min : 0 sec Speed (mph): 1.7 Grade (%): 10 HR (bpm): 126 SBP (mmHg): 181 DBP (mmHg): 92 METS: --- Stage: STAGE 2 Duration (min): 1 min : 0 sec Speed (mph): 2.5 Grade (%): 12 HR (bpm): 132 SBP (mmHg): 181 DBP (mmHg): 92 METS: --- Stage: STAGE 2 Duration (min): 2 min : 0 sec Speed (mph): 2.5 Grade (%): 12 HR (bpm): 135 SBP (mmHg): 186 DBP (mmHg): 89 METS: --- Stage: STAGE 2 Duration (min): 3 min : 0 sec Speed (mph): 3.4 Grade (%): 14 HR (bpm): 139 SBP (mmHg): 186 DBP (mmHg): 89 METS: --- Stage: RECOVERY Duration (min): 1 min : 0 sec Speed (mph): 0.0 Grade (%): 0 HR (bpm): 120 SBP (mmHg): 181 DBP (mmHg): 88 METS: --- Stage: RECOVERY Duration (min): 2 min : 0 sec Speed (mph): 0.0 Grade (%): 0 HR (bpm): 95 SBP (mmHg): 181 DBP (mmHg): 88 METS: --- Stage: RECOVERY Duration (min): 3 min : 0 sec Speed (mph): 0.0 Grade (%): 0 HR (bpm): 99 SBP (mmHg): 166 DBP (mmHg): 89 METS: --- Stage: RECOVERY Duration (min): 3 min : 13 sec Speed (mph): 0.0 Grade (%): 0 HR (bpm): 93 SBP (mmHg): 166 DBP (mmHg): 89 METS: --- Rest
== END 2022-08-06 07:54 | disposition home or self-care (01) ==
PROVIDERS: PCP Emergency Medicine; Visit Provider Emergency Medicine
DX: R07.2 Precordial pain (principal)
CPT/HCPCS: 93017

== ENCOUNTER 2022-08-11 15:26 | Emergency (ER) | payer OTHER, SELFPAY ==
[2022-08-11 15:33] VITALS: BP 142/82; PULSE 85; RESP 16; TEMP 36.5; O2SAT 100
--- NOTE | 2022-08-11 16:26 | ED.GENADULT ---
HPI - General Adult General Chief complaint: Skin/Abscess/Foreign Body Stated complaint: shingles Source: patient Mode of arrival: ambulatory Limitations: no limitations History of Present Illness HPI narrative: Patient presents for evaluation of painful lesions to the occipital region of her scalp for the last 4 days. She has a history of shingles and states that her current symptoms are consistent with those previously experience with shingles in the past. She currently rates her pain 2/10 severity. She states she has several scabbed lesions in that area. She describes the pain as throbbing. She tried applying Voltaren gel with some improvement in her pain thereafter. She states she initialy thought her pain was musculoskeletal in origin, however she was treated by her chiropractor and states that symptoms have persisted thereafter, Related Data Home Medications Medication Instructions Recorded Confirmed calcium carbonate 600 mg-vitamin 1 cap PO DAILY 07/12/19 08/11/22 D3 5 mcg (200 unit) capsule (Calcium 600 + D(3)) cyanocobalamin (vitamin B-12) 1,000 mcg PO DAILY 07/12/19 08/11/22 1,000 mcg capsule vitamin E (dl, acetate) 450 mg 1,000 unit PO DAILY 07/12/19 08/11/22 (1,000 unit) capsule omega 0-jca-mbp-fish oil 60 mg-90 1 cap PO DAILY 12/02/19 08/11/22 mg-500 mg capsule (Fish Oil) methocarbamol 750 mg tablet 750 mg PO PRN PRN Pain 06/24/22 08/11/22 Allergies Allergy/AdvReac Type Severity Reaction Status Date / Time No Known Allergies Allergy Verified 08/11/22 15:38 Review of Systems Review of Systems: CONSTITUTIONAL: Denies fever, chills, or sweats. EYES: Denies visual changes, redness, or discharge. ENT: Denies rhinorrhea, congestion, sore throat, or otalgia. CARDIOVASCULAR: Denies chest pain, palpitations, or edema. RESPIRATORY: Denies cough or dyspnea. GASTROINTESTINAL: Denies abdominal pain, nausea, vomiting, or diarrhea. GENITOURINARY: Denies dysuria or hematuria. SKIN: Reports painful lesions to the right occipital region of her scalp. MUSCULOSKELETAL: Denies back pain, joint pain, or myalgia. NEUROLOGIC: Denies headache, numbness, dizziness, or weakness. PSYCHIATRIC: Denies anxiety or depression. [facility] Past Medical History Medical History Age-related osteoporosis with current pathological fracture, unspecified site, initial encounter for fracture Allergies Arthritis Bartholin's cyst Depression Fibrocystic breast Hemorrhoids Hyperlipidemia Hypothyroidism Osteoporosis Psoriatic arthritis Thyroid disease Surgical History Surgical History H/O breast biopsy Family History Family History Mother Hypertension Family history of cardiovascular disease Family history of lung cancer Father Acute myocardial infarction, Onset Age: 53 Family history of cardiovascular disease Hypertension Family history of coronary artery disease Grandparent Hypertension Family history of cardiovascular disease Cerebrovascular accident Social History Social History Smoking status: Never smoker Second hand tobacco smoke exposure: No Alcohol intake: never Substance use: never Substance use type: does not use Gender identity (if verbalized by the patient): Female Spiritual care concerns: No Exam Narrative: GENERAL: Well-appearing, well-nourished, and in no acute distress. HEAD: Normocephalic, atraumatic. EYES: PERRLA and EOMI. ENT: Nares clear, no rhinorrhea or epistaxis. Mucous membranes moist. Oropharynx without tonsillar hypertrophy exudate or other lesions. Bilateral TMs pearly liu nonbulging NECK: Supple. No adenopathy or masses. No carotid bruits or JVD CHEST: Clear to auscultation. No respiratory distress. No wheezes rale
== END 2022-08-11 16:29 | disposition home or self-care (01) ==
PROVIDERS: Emergency Provider Nurse Practitioner; PCP Emergency Medicine
DX: R59.1 Generalized enlarged lymph nodes (principal); B02.9 Zoster without complications; E03.9 Hypothyroidism, unspecified; E78.5 Hyperlipidemia, unspecified
CPT/HCPCS: 99213; G0463

== ENCOUNTER 2023-03-05 13:52 | Outpatient (CLI) | payer OTHER, SELFPAY ==
--- NOTE | ~2023-03-05 | MM_ITS ---
EXAMINATION: MM screening [facility] BI w marylou HISTORY: Screening mammogram TECHNIQUE: Craniocaudal and mediolateral oblique 3-D tomosynthesis images were obtained and synthetic 2-D images were generated. CAD analysis was submitted and interpreted. COMPARISON: 01/08/2022, 12/10/2020, 12/08/2019 BREAST PARENCHYMAL COMPOSITION: The breasts are heterogeneously dense, which may obscure small masses . FINDINGS: No suspicious mass, calcification, or architectural distortion are identified in either declan ast to suggest malignancy. There has been no suspicious interval change. IMPRESSION: 1. No mammographic evidence of malignancy. 2. Recommend routine screening mammography in one year. BI-RADS Category 1: Negative Reviewed, dictated and finalized at location A.
== END 2023-03-05 13:53 | disposition home or self-care (01) ==
PROVIDERS: PCP Emergency Medicine; Visit Provider Emergency Medicine
DX: Z12.31 Encounter for screening mammogram for malignant neoplasm of breast (principal)
CPT/HCPCS: 77063; 77067

== ENCOUNTER 2023-03-16 15:49 | Outpatient (CLI) | payer OTHER, SELFPAY ==
[2023-03-17 15:25] LABS: Kit Draw Collected
== END 2023-03-16 15:50 | disposition home or self-care (01) ==
LOC: ANHGOSHLAB 15:50
PROVIDERS: PCP Emergency Medicine; Visit Provider Emergency Medicine
DX: R35.0 Frequency of micturition (principal)
CPT/HCPCS: 36415

== ENCOUNTER 2023-07-07 10:32 | Outpatient (CLI) | payer OTHER, SELFPAY ==
--- NOTE | ~2023-07-07 | XR_ITS ---
Clinical Indication: Shortness of breath PA and lateral views of the chest: Comparison: 07/19/2022 Findings: The lungs are clear, without evidence of focal consolidation or pleural effusion. Cardiome diastinal silhouette is within normal limits. Bones and soft tissues are unremarkable. Impression: Normal chest. Reviewed, dictated and finalized at location . T SCIENCE PROFESSOR Impression: Normal chest.
== END 2023-07-07 10:33 ==
PROVIDERS: PCP Emergency Medicine; Visit Provider Emergency Medicine
DX: R06.02 Shortness of breath (principal)
CPT/HCPCS: 71046

== ENCOUNTER 2024-03-16 14:48 | Outpatient (CLI) | payer OTHER, MEDICARE, SELFPAY ==
--- NOTE | ~2024-03-16 | MM_ITS ---
EXAMINATION: MM screening [facility] BI w marylou HISTORY: Screening TECHNIQUE: Craniocaudal and mediolateral oblique 3-D tomosynthesis images were obtained and synthetic 2-D images were generated. CAD analysis was submitted and interpreted. COMPARISON: Comparison to multiple prior studies sequentially, with oldest reviewed study dated 09/2017. BREAST PARENCHYMAL COMPOSITION: Dense: The breasts are heterogeneously dense, which may obscure small masses FINDINGS: There is no evidence of suspicious mass, calcification, or architectural distortion to sugg est malignancy in either breast. There has been no suspicious interval change. IMPRESSION: 1. No mammographic evidence of malignancy. 2. Recommend routine screening mammography in one year. BI-RADS Category 1: Negative Reviewed, dictated and finalized at location B.
== END 2024-03-16 14:49 | disposition home or self-care (01) ==
LOC: ANHIMG 14:49
PROVIDERS: PCP Emergency Medicine; Visit Provider Emergency Medicine
DX: Z12.31 Encounter for screening mammogram for malignant neoplasm of breast (principal)
CPT/HCPCS: 77063; 77067

== ENCOUNTER 2024-07-23 10:51 | Outpatient (CLI) | payer OTHER, MEDICARE, SELFPAY ==
--- NOTE | ~2024-07-23 | MR_ITS ---
MRI of the lumbar spine Clinical History: Back pain Technique: Axial T2-weighted images, and sagittal T1-weighted, T2-weighted, and T2 fat-sat images wer e acquired. Findings: There is dextroscoliosis. No fracture or subluxation evident. No suspicious bone marrow sig nal abnormality seen. At L1-L2, there is moderate degenerative disc narrowing. There is minimal disc bulge with mild to mod erate facet arthropathy. No central canal stenosis. There is moderate bilateral neural foraminal narr owing. At L2-L3, there is severe degenerative disc narrowing. There is mild disc bulge with moderate facet a rthropathy. No central canal stenosis. There is severe left neural foraminal narrowing. Right neural foramen preserved. At L3-L4, there is severe degenerative disc narrowing. There is minimal disc bulge with moderate to a dvanced facet arthropathy. No central canal stenosis. There is severe bilateral neural foraminal narr owing. At L4-L5, there is diffuse disc bulge and severe facet arthropathy. No francine central canal stenosis. There is severe bilateral neural foraminal narrowing. At L5-S1, there is mild disc bulge with moderate facet arthropathy. No central canal stenosis. There is severe right neural foraminal narrowing. Left neural foramen preserved. At the L4 and L5 levels, there is clumping and peripheral splaying of the cauda equina, which could r eflect arachnoiditis. Paravertebral soft tissues are unremarkable. Impression: Advanced degenerative spondylosis, as above, with underlying dextroscoliosis. Clumping and peripheral splaying of the cauda equina at the L4-5 levels, which could reflect arachnoi ditis. Reviewed, dictated and finalized at [facility]. CEMENTER Impression: Advanced degenerative spondylosis, as above, with underlying dextroscoliosis. Clumping and peripheral splaying of the cauda equina at the L4-5 levels, which could reflect arachnoiditis.
== END 2024-07-23 10:52 | disposition home or self-care (01) ==
LOC: MICIMG 10:52
PROVIDERS: PCP Nurse Practitioner Family; Visit Provider Nurse Practitioner Family
DX: M47.896 Other spondylosis, lumbar region (principal); M47.897 Other spondylosis, lumbosacral region
CPT/HCPCS: 72148

== ENCOUNTER 2024-09-06 08:51 | Outpatient (CLI) | payer OTHER, MEDICARE, SELFPAY ==
--- NOTE | ~2024-09-06 | MR_ITS ---
EXAMINATION: MR cervical spine wo con DATE: 09/06/2024 09:27 INDICATION: Cervical myelopathy TECHNIQUE: Magnetic resonance imaging (MRI) of the cervical spine was performed without intravenous c ontrast. Sequences included sagittal T2-weighted FSE, sagittal T2-weighted FS FSE, sagittal T1-weight ed FSE, axial MERGE and axial T2-weighted FSE. COMPARISON: 02/10/2005 FINDINGS: Bone alignment is normal. Vertebral body heights are normal. Bone marrow signal intensity is normal . Mild disc height loss at C6-C7. Cord signal intensity is normal. Cervical soft tissues tissues are unremarkable. The following disc levels are specifically discussed: C2-C3: The disc does not extend beyond the endplate margin. There is no uncovertebral joint osteoarth ritis. There is mild bilateral facet joint osteoarthritis. There is no neural foraminal stenosis. The re is no central canal stenosis. C3-C4: Disc is mildly bulging. There is mild bilateral uncovertebral joint osteoarthritis. There is m ild left and moderate right facet joint osteoarthritis. There is no neural foraminal stenosis. There is no central canal stenosis. C4-C5: Disc is minimally bulging. There is mild bilateral uncovertebral joint osteoarthritis. There i s mild right and moderate left facet joint osteoarthritis. There is mild bilateral neural foraminal s tenosis. There is no central canal stenosis. C5-C6: Disc is mildly bulging. There is moderate bilateral uncovertebral joint osteoarthritis. There is mild right and moderate left facet joint osteoarthritis. There is mild bilateral neural foraminal stenosis. There is minimal central canal stenosis. C6-C7: Disc is mildly bulging with superimposed annular fissure and small right foraminal zone disc e xtrusion with disc material extending up to 4 mm caudal to the level of the superior endplate of C7. There is mild bilateral uncovertebral joint osteoarthritis. There is mild bilateral facet joint osteo arthritis. There is mild left and moderate right neural foraminal stenosis. There is mild central can al stenosis. C7-T1: The disc does not extend beyond the endplate margin. There is no uncovertebral joint osteoarth ritis. There is mild bilateral facet joint osteoarthritis. There is no neural foraminal stenosis. The re is no central canal stenosis. IMPRESSION: 1. Progression of previously minimal, now mild cervical spondylosis. Reviewed, dictated and finalized at location A. EFIED NATURAL GAS OPERATOR
== END 2024-09-06 08:52 | disposition home or self-care (01) ==
LOC: GOSHIMG 08:53
PROVIDERS: PCP Nurse Practitioner Family; Visit Provider Neurological Surgery
DX: M47.812 Spondylosis without myelopathy or radiculopathy, cervical region (principal); G95.9 Disease of spinal cord, unspecified
CPT/HCPCS: 72141

== ENCOUNTER 2025-04-13 14:57 | Outpatient (CLI) | payer MEDICARE, OTHER, SELFPAY ==
--- NOTE | ~2025-04-13 | MM_ITS ---
EXAMINATION: MM screening laina BI w marylou HISTORY: Screening TECHNIQUE: Craniocaudal and mediolateral oblique 3-D tomosynthesis images were obtained and synthetic 2-D images were generated. CAD analysis was submitted and interpreted. COMPARISON: 03/05/2023 BREAST PARENCHYMAL COMPOSITION: The breasts are extremely dense, which lowers the sensitivity of mammography. FINDINGS: There is no evidence of suspicious mass, calcification, or architectural distortion to suggest malignancy. There has been no suspicious interval change. IMPRESSION: 1. No mammographic evidence of malignancy. Recommend routine screening mammography in one year. BI-RADS Category 2: Benign finding(s) Reviewed, dictated and finalized at location Q. IMPRESSION: 1. No mammographic evidence of malignancy. Recommend routine screening mammogra phy in one year. BI-RADS Category 2: Benign finding(s)
--- OUTSIDE RECORDS SUMMARY | 2025-04-13 15:02 | XMS_ITS | Clinical Summary ---
Author Organization [facility] Address [address] [place] [address] Phone Care Team Providers Care Director Of Annual Giving Name Role Phone Pavel Veliz MD Primary Care Provider [phone] Allergies No known active allergies Medications sertraline (ZOLOFT) 50 mg Oral tablet Take by mouth. Active piroxicam (FELDENE) 20 mg capsule Take 20 mg by mouth daily. Active ERGOCALCIFEROL, VITAMIN D2, (VITAMIN D ORAL) Take by mouth. Active Vitamin E 100 unit Oral Tab Take by mouth. 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 Primary Care: Pavel Veliz MD Referring Provider: Pavel Veliz MD [address] [place] [address] Other: Dr Geno Hope Problem Noted Date Diagnosed Date Diffuse cystic mastopathy 10/22/2011 Osteoarthritis Depression Seasonal allergies Cystitis, interstitial Frozen shoulder Family History Medical History Relation Name Comments Heart Disease Father Lung Cancer Mother non smoker Breast Cancer Neg Hx Ovarian Cancer Neg Hx Uterine Cancer Neg Hx Relation Name Status Comments Father (Age 53) Mother Social History Tobacco Use Types Packs/Day Years Used Date Smoking Tobacco: Never Smokeless Tobacco: Never Tobacco Cessation:Counseling Given: No Alcohol Use Standard Drinks/Week Comments No 0 (1 standard drink = 0.6 oz pur e alcohol) Comments No Sex and Gender Information Value Date Recorded Sex Assigned at Not on file Legal Sex 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 Gender Identity Not on file Sexual Orientation Not on file Occupation Industry Job Start Date Job End Date Not on file Not on file Not on file Not on file Last Filed Vital Signs Vital Sign Reading Time Taken Comments Blood Pressure 137/78 11/20/2014 11:08 AM CDT Pulse 68 11/20/2014 11:08 AM CDT Temperature - - Respiratory Rate - - Oxygen Saturation - - Inhaled Oxygen Concentration - - Weight 60.8 kg (134 lb) 11/20/2014 11:08 AM CDT Height 172.7 cm (5' 8) 11/20/2014 11:08 AM CDT Body Mass Index 20.37 11/20/2014 11:08 AM CDT Plan of Treatment Health Maintenance Due Date Last Done Comments DTAP/TDAP/TD VACCINES (1 - Tdap) 1977 COLORECTAL SCREENING 12/27/2003 Colorectal Cancer Screening 12/27/2003 FIT-DNA Q 3 years 12/27/2003 FIT/FOBT Q 1 year 12/27/2003 Flex Sig/CT Colonography Q 5 years 12/27/2003 PNEUMOCOCCAL VACCINE 50+ YEA RS (1 of 1 - PCV) 2008 ZOSTER VACCINE (1 of 2) 2008 BREAST CANCER SCREENING 11/21/2015 11/21/19 15, 11/14/2013, 10/25/2012, Additional history exists OSTEOPOROSIS SCREENING 12/27/2023 INFLUENZA VACCINE (#1) 2025 RSV VACCINE (60+ or ) (1 - 1-dose 75+ series) 2033 Procedures Procedure Name Priority Date/Time Associated Diagnosis Comments MAMMO SCREEN BILAT W OR WO CAD Routine 11/20/2014 11:29 AM CDT Other screening mammogram Diffuse cystic mastopathy, left Diffuse cystic mastopathy, right from Last 3 Months or Most Recently Relevant to Health Maintenance Results * MAMMO DIGITAL SCREEN BILAT (11/20/2014 11:29 AM CDT) Anatomical Region Laterality Modality Breast Bilateral Mammography 11/20/2014 11:2 7 AM CDT Narrative 11/24/2014 9:48 AM CDT BILATERAL FULL FIELD DIGITAL SCREENING MAMMOGRAM WITH CAD. 11/20/14 HISTORY: Routine Screening. TECHNIQUE: Full field digital screening mammography of both breasts were obtained. COMPARISON: October 2013 and October 2012 and January 2008 BREAST PARENCHYMAL COMPOSITION: Heterogeneously dense, which lowers the sensitivity of mammography. FINDINGS: No new dominant masses, suspicious calcifications, parenchymal asymmetry or areas of architectural distortion are identified in either breast. Since the prior study, there has been no significant interval change. The computer aided detection system was utilized. OVERALL ASSESSMENT: BI-RADS category 1: Negative. RECOMMENDATION: Annual mammography is recommended. Dictated from [facility] Procedure Note Radha Kohler MD - 11/24/2014 BILATERAL FULL FIELD DIGITAL SCREENING MAMMOGRAM WITH CAD. 11/20/14 HISTORY: Routine Screening. TECHNIQUE: Full field digital screening mammography of both breasts were obtained. COMPARISON: October 2013 and October 2012 and January 2008 BREAST PARENCHYMAL COMPOSITION: Heterogeneously dense, which lowers the sensitivity of mammography. FINDINGS: No new dominant masses, suspicious calcifications, parenchymal asymmetry or areas of architectural distortion are identified in either breast. Since the prior study, there has been no significant interval change. The computer aided detection system was utilized. OVERALL ASSESSMENT: BI-RADS category 1: Negative. RECOMMENDATION: Annual mammography is recommended. Dictated from [facility] Geno Hope MD MAMMO ORDERABLES Final Result from Last 3 Months or Most Recently Relevant to Health Maintenance Insurance [facility] [employer] PPO [phone] Care Teams Director Of Annual Giving Relationship Specialty Start Date End Date Pavel Veliz MD [address] [place] [address] [facility] - General 08/23/08
--- OUTSIDE RECORDS SUMMARY | 2025-04-13 15:02 | XMS_ITS | Encounter Summary ---
Author Organization [facility] Address [address] [place] [address] Care Team Providers Care Cop Examiner Name Role Phone Pavel Veliz MD Primary Care Provider Encounter Details Date Type Department Care Team (Late st Contact Info) Description 05/05/2005 Outpatient Historical Division of Neurology [address] [place], [place] [id number] Cayla Cotter MD [address] [place] [address] Social History Tobacco Use Types Packs/Day Years Used Date Smoking Tobacco: Never Assessed Comments Unknown Sex and Gender Information Value Date Recorded Sex Assigned at Not on file Legal Sex Female 2:59 AM SALES LEDGER CLERK Gender Identity Not on file Sexual Orientation Not on file documented as of this encounter Plan of Treatment Not on file documented as of this encounter Visit Diagnoses Not on filedocumented in this encounter Care Teams Cop Examiner Relationship Specialty Start Date End Date Pavel Veliz MD [address] [place] [address] PCP - General 08/23/08 documented as of this encounter
--- OUTSIDE RECORDS SUMMARY | 2025-04-13 15:02 | XMS_ITS | Encounter Summary ---
Author Organization [facility] Address [address] [place] [address] Care Team Providers Care Guide Cruise Name Role Phone Ally Matthews MD Primary Care Provider + Nica Mccall TEMPLATE REPRODUCTION TECHNICIAN Unavailable Encounter Details Date Type Department Care Team (Latest Contact Info) Description 07/13/2024 [employer] Message [facility] [place] [address] [id number] Er[facility], [facility] Provider Pain Clinic Referral Social History Tobacco Use Types Packs/Day Years Used Date Smoking Tobacco: Never Passive Smoke Exposure: Never Smokeless Tobacco: Never Alcohol Use Standard Drinks/Week Comments Yes 0 (1 standard drink = 0.6 oz pur e alcohol) rare PHQ-2 Answer Date Recorded Patient Health Questionnaire-2 Score 0 06/09/2024 Comments Unknown Sex and Gender Information Value Date Recorded Sex Assigned at Not on file Legal Sex Female 9:12 AM CDT Gender Identity Not on file Sexual Orientation Not on file documented as of this encounter Plan of Treatment Upcoming Encounters Date Type Department Care Team (Late st Contact Info) Description 08/03/2025 1:20 PM SALES REPRESENTATIVE WIRE ROPE Office Visit [facility] Family Medicine - [place] [address] [place] [phone] Ally Matthews MD [address] [place] [address] 02/16/2026 2:00 PM CDT Office Visit [facility] Family Medicine - [place] [address] [place], [place] [phone] Ally Matthews MD [address] [place] [phone] documented as of this encounter Visit Diagnoses Not on filedocumented in this encounter Care Teams Guide Cruise Relationship Specialty Start Date End Date Ally Matthews MD [address] [place] [phone] PCP - General FAMILY PRACTICE 06/09/24 Nica Mccall NP [address] [place] [address] Nurse Practitioner PAIN MANAGEMENT 01/31/25 Jacqueline Hernandez MD [address] [place] [id number] RHEUMATOLOGY 12/18/24 documented as of this encounter
--- OUTSIDE RECORDS SUMMARY | 2025-04-13 15:02 | XMS_ITS | Clinical Summary ---
Author Organization [facility] Address [address] [place] [address] Care Team Providers Care Drawing In Machine Tender Name Role Phone Trish Veliz MD Primary Care Provider [phone] Source Comments [facility],non-owned Affiliates and Associated Physician Practices is amultiple site organization consisting of ambulatory clinics and hospital sitesin [place], [place], [place] and [place]. This disclosure is being madepursuant to the Care Everywhere program and may not contain all information available regarding this patient. Last updated [employer] [facility] Allergies No known active allergies Medications * Be aware that medications may not be up to date on this document. Alwaysverify current medications with the patient. atorvastatin (LIPITOR) 20 MG tablet 20 mg once daily 10/09/2021 Active folic acid (FOLVITE) 1 MG tablet 1 mg once daily 11/15/2021 Active ibandronate (BONIVA) 150 MG tablet every 30 days 10/09/2021 Activ e levothyroxine (SYNTHROID) 50 MCG tablet Take 50 mcg by mouth once daily Active methocarbamol (ROBAXIN) 750 MG tablet once daily 11/19/2021 Active methotrexate 2.5 MG tablet 5 tablets every 7 days 10/28/2021 Active omeprazole (PRILOSEC) 40 MG capsule 40 mg once daily 11/15/2021 Active sertraline (ZOLOFT) 50 MG tablet 50 mg once daily 10/09/2021 Active diclofenac sodium (VOLTAREN) 1 % gel Apply to affected area 2 times daily as needed Active cyanocobalamin (VITAMIN B-12) 1000 MCG tablet Take 1,000 mcg by mouth once daily Active [place]-3 Fatty Acids (FISH OIL) 1000 MG capsule Take by mouth once daily Active vitamin E (TOCOPHERYL) 1000 UNIT capsule Take 1,000 Units by mouth once daily Active Calcium Carbonate-Vitam in D (CALCIUM PLUS VITAMIN D PO) Take by mouth once daily Active celecoxib (CELEBREX) 200 MG capsule Take 200 mg by mouth once daily Active Active Problems Problem Noted Date Diagnosed Date Chronic back pain 12/16/2021 Psoriatic arthritis 12/16/2021 High cholesterol 12/16/2021 Hypothyroidism 12/16/2021 Anxiety and depression 12/16/2021 Osteopenia 12/16/2021 Osteoporosis 12/16/2021 Spinal stenosis 12/16/2021 Family History Medical History Relation Name Comments Other Father NM Other Mother Lung CA,Cause o f was Covid 19 Other Sister Epilepsy,Fibrom yalgia Relation Name Status Comments Father Mother Sister Alive Social History Tobacco Use Types Packs/Day Years Used Date Smoking Tobacco: Never Smokeless Tobacco: Never Alcohol Use Standard Drinks/Week Comments Yes 0 (1 standard drink = 0.6 oz pur e alcohol) Comments No Sex and Gender Information Value Date Recorded Sex Assigned at Not on file Legal Sex Female 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 Gender Identity Not on file Sexual Orientation Not on file 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 on file Not on file Not on file Last Filed Vital Signs Vital Sign Reading Time Taken Comments Blood Pressure 147/88 12/16/2021 11:34 AM CDT Pulse 73 12/16/2021 11:34 AM CDT Temperature - - Respiratory Rate - - Oxygen Saturation - - Inhaled Oxygen Concentration - - Weight 61.7 kg (136 lb) 12/16/2021 11:34 AM CDT Height 170.2 cm (5' 7) 12/16/2021 11:34 AM CDT Body Mass Index 21.3 12/16/2021 11:34 AM CDT Plan of Treatment Health Maintenance Due Date Last Done Comments BONE DENSITY TESTING 1960 COLOGUARD (AGES 45-75) - COL ON CA SCREENING 1958 COLON MONITORING 1958 COLONOSCOPY - COLON CA SCREENING 1958 CT COLONOGRAPHY - COLON CA SCREENING 1960 Colorectal Cancer Screening 1958 FIT - COLON CA SCREENING 1958 FLEX SIG - COLON CA SCREENING 1958 HEPATITIS C SCREENING 12/21/1976 DTAP/TDAP/TD VACCINES (1 - Tdap) 1977 PNEUMOCOCCAL VACCINE 50+ (1 of 1 - PCV) 2008 ZOSTER VACCINE (1 of 2) 2008 MAMMOGRAM 12/09/2020 12/09/2018 DEPRESSION SCREENING 07/27/2024 COVID-19 VACCINE (1 - 2023-2 5 season) 2025 INFLUENZA VACCINE (#1) 2025 Respiratory Syncytial Virus (RSV) Vaccine Pt: or over 60 yrs (1 - 1-dose 75+ series) 2033 HEPATITIS B VACCINE Aged Out No longe r eligible based on patient's age to complete this topic HIB VACCINE Aged Out No longer eligi ble based on patient's age to complete this topic HPV VACCINE Aged Out No longer eligi ble based on patient's age to complete this topic MENINGOCOCCAL (Group B) VACC INE SHARED DECISION-MAKING Aged Out No longer eligibl e based on patient's age to complete this topic MENINGOCOCCAL GROUPS A/C/Y/W VACCINE Aged Out No longer eligible b ased on patient's age to complete this topic Insurance [place] [address] [facility] Care Teams Drawing In Machine Tender Relationship Specialty Start Date End Date Trish Veliz MD [address] [place] [address] PCP - General Family Medicine 12/16/21
--- OUTSIDE RECORDS SUMMARY | 2025-04-13 15:02 | XMS_ITS | Clinical Summary ---
Author Organization [facility] Address [address] [place] [address] Care Team Providers Care Senior Safety Support Manager Name Role Phone Ally Matthews MD Primary Care Provider + Nica Mccall MUD TANK OPERATOR Unavailable Allergies No known active allergies Medications celecoxib (CELEBREX) 200 MG capsule Take 1 capsule (200 mg total) by mouth daily. Active vitamin B-12 (CYANOCOBALAMIN) (CYANOCOBALAMIN) 1000 mcg tablet Take 1 tablet (1,000 mcg total) by mouth daily. Active Vitamin E 100 units Tab Take by mouth. Active methocarbamol (ROBAXIN) 750 MG Tab Take 1 tablet (750 mg total) by mouth daily. 4 Active fish oil (OMEGA-3 FATTY ACID) 1000 MG Cap capsule 1 capsule (1,000 mg total). Active folic acid (FOLVITE) 1 MG tablet Take 1 tablet (1 mg total) by mouth daily. 4 Active Calcium Carb-Cholecalcifero l (CALCIUM 500+D OR) Active atorvastatin (LIPITOR) 20 MG tabletIndications:M ixed hyperlipidemia Take 1 tablet (20 mg total) by mouth daily. Do not fill until patient requests 90 tablet 3 4 06/09/20 25 Active levothyroxine (SYNTHROID) 50 MCG tabletIndications:A cquired hypothyroidism Take 1 tablet (50 mcg total) by mouth daily. Do not fill until patient requests 90 tablet 3 4 06/09/20 25 Active omeprazole (PRILOSEC) 40 MG capsuleIndications: Gastroesophageal reflux disease without esophagitis Take 1 capsule (40 mg total) by mouth daily. Do not fill until patient requests 90 capsule 3 4 06/09/20 25 Active sertraline (ZOLOFT) 50 MG tabletIndications:A nxiety and depression Take 1.5 tablets (75 mg total) by mouth daily. Do not fill until patient requests 135 tablet 3 5 10/19/19 26 Active methotrexate (TREXALL) 2.5 MG tablet 5 tablets on one day per week 5 Active Active Problems Problem Noted Date Diagnosed Date Osteoarthrosis 05/26/2024 Seasonal allergies 05/26/2024 Anxiety and depression 12/16/2021 Overview (10/18/2024): Takes sertraline. Reports feeling increasingly down and depressed. Wonders about an adjustment to sertraline. Assessment & Plan (10/18/2024 3:23 PM CDT): Possibly not controlled and contributing to her symptoms. If her thyroid is normal she will adjust her sertraline to 75 mg daily. Assessment & Plan (06/09/2024 2:34 PM SHIP MANAGER): Controlled. Continue sertraline. Mixed hyperlipidemia 12/16/2021 Overview (06/09/2024): Takes atorvastatin. Last total cholesterol 160. Assessment & Plan (06/09/2024 2:34 PM SHIP MANAGER): Will check lipid panel and CMP at her next visit. Continue atorvastatin. Acquired hypothyroidism 12/16/2021 Overview (10/18/2024): Takes levothyroxine separate from medications and food. Patient reports that she has the lab at home. It was normal. Feeling cold. Heating bad for the back, sweaters. Lost weight according to home scale. More edgy. Jumpy according to neurologist. She wonders if T3, T4 are off. Assessment & Plan (10/18/2024 3:22 PM CDT): Last TSH normal. Will check TSH, T3, T4 to confirm. If normal, she will try adjustment to depression medication in case this is contributing. Assessment & Plan (06/09/2024 2:34 PM SHIP MANAGER): Requested TSH to confirm she is in range. Continue levothyroxine. Suspect controlled. Chronic. Osteoporosis 12/16/2021 Overview (06/09/2024): Takes prolia. Will be due in September for next dose. Psoriatic arthritis ([facility]) 12/16/2021 Overview (06/09/2024): Sees Dr. Alvarado through [facility]. On methotrexate. Sees her every 3 months. Assessment & Plan (06/09/2024 2:34 PM SHIP MANAGER): Stable and chronic managed by rheumatology. Spinal stenosis 12/16/2021 Overview (06/09/2024): With DDD and had injections in [place]. Would like to continue locally. Assessment & Plan (06/09/2024 2:34 PM SHIP MANAGER): Referral to pain management to help assist with injection management. Encounters Date Type Department Care Team Description 01/31/2025 1:00 PM CDT Office Visit [address] [place] [address] Ally Matthews MD Medicare Wellness (Patient presents today for their Medicare Annual Wellness Visit.) 01/31/2025 12:40 PM CDT Office Visit [place] [id number] [facility] [address] [place] [address] Ally Matthews MD Follow Up (Ck on hypothyroidism/meds) 01/31/2025 Travel from Last 3 Months Immunizations Immunization Administration Dates Next Due FLUAD (IIV, Trivalent, 0.5 M L Pre-filled Syringe) 05/25/2024 Influenza (Generic) 04/05/2019, 5,04/27/2014,2012 Influenza Adult (Generic) 05/11/2023,11/2021,04/30/2021,2017 Pneumococcal (Prevnar 13) 08/07/2020 Pneumococcal (Prevnar 20) 01/31/2025 Shingrix 01/04/2024,09/29/2023 Td, Adsorbed, Preservative F ree, Adult Use, Lf Unspecified 08/07/2020 Family History Medical History Relation Comments Polycystic ovary syndrome Daughter 1 Endometriosis Daughter 2 Heart Disease Father Heart Disease Maternal Grandfather Cancer Maternal Grandmother Lung Cancer Maternal Grandmother Arthritis Maternal Uncle Defects Mother Cancer Mother Dementia Mother Lung Cancer Mother Stroke Mother Heart Disease Paternal Grandfather Stroke Paternal Grandfather Seizures Sister Relation Status Comments Daughter 1 Alive Daughter 2 Alive Father Maternal Grandfather Maternal Grandmother Maternal Uncle Mother Paternal Grandfather Sister Alive Social History Tobacco Use Types Packs/Day Years Used Date Smoking Tobacco: Never Passive Smoke Exposure: Never Smokeless Tobacco: Never Tobacco Cessation:Counseling Given: No Alcohol Use Standard Drinks/Week Comments Yes 0 (1 standard drink = 0.6 oz pur e alcohol) maybe 1 or 2 a year AUDIT-C Answer Date Recorded Q1: How often do you have a drink containing alc ohol? Never 01/30/2025 Average Number of Drinks Not on file 025 Q3: How often do you have si x or more drinks on one occasion? Never 01/30/2025 PHQ-2 Answer Date Recorded Patient Health Questionnaire-2 Score 0 01/30/2025 Comments Unknown Sex and Gender Information Value Date Recorded Sex Assigned at Not on file Legal Sex Female 9:12 AM CDT Gender Identity Not on file Sexual Orientation Not on file Last Filed Vital Signs Vital Sign Reading Time Taken Comments Blood Pressure 108/63 01/31/2025 1:21 PM CDT Pulse 79 01/31/2025 1:21 PM CDT Temperature 36.8 C (98.3 F) 01/31/2025 1:21 PM CDT Respiratory Rate 14 01/31/2025 1:21 PM CDT Oxygen Saturation 99% 01/31/2025 1:21 PM CDT Inhaled Oxygen Concentration - - Weight 60.6 kg (133 lb 8 oz) 01/31/2025 1:21 PM CDT Height 170.2 cm (5' 7) 01/31/2025 1:21 PM CDT Body Mass Index 20.91 01/31/2025 1:21 PM CDT Plan of Treatment Upcoming Encounters Date Type Department Care Team (Late st Contact Info) Description 08/03/2025 1:20 PM SHIP MANAGER Office Visit [facility] [address] [place] [address] [address] [place] [address] Ally Matthews MD [address] [place] [address], [place] [id number] 02/16/2026 2:00 PM CDT Office Visit [facility] [address] [facility] [address] [place], [place] [address] Ally Matthews MD [address] [facility] [address] [place] [phone] Health Maintenance Due Date Last Done Comments Hepatitis C 1978 COVID-19 Vaccine ( season) 2025 10/04/2020 Annual Medicare Wellness Visit 02/01/2026 01/31/2025 Mammogram Screening 03/16/2026 03/16/2024, 03/05/2023, 12/09/2018, Additional history exists Colorectal Cancer Screening FIT-DNA (3 Years) 01/31/2027 02/01/2024, 02/01/2024 DTaP, Tdap and Td Vaccines (1 - Tdap) 08/08/2030 08/07/2020 Postponed from 08/08/2020 (Future Appointment) RSV Immunization or 60+ Years (1 - 1-dose 75+ series) 2033 Zoster Vaccines Completed 01/04/2024, 09/29/2023 Dexa Scan (General) Completed 02/15/2024, 02/15/2024, 09/26/2020, Additional history exists PHQ-2 (Physician [place]) Completed 01/30/2025 Pneumococcal Vaccine: 50+ Years Completed 01/31/2025, 08/07/2020 Meningococcal B Vaccine Aged Out No l onger eligible based on patient's age to complete this topic Meningococcal Vaccine Aged Out No pan brooke eligible based on patient's age to complete this topic RSV Immunizations Under 20 Months Aged Out No longer eligible based on patient's age to complete this topic Procedures Procedure Name Priority Date/Time Associated Diagnosis Comments MAMMOGRAM GENERIC (SCAN ORDER) 03/16/2024 BONE DENSITY/DEXA Routine 02/15/2024 9:0 8 AM CDT Age-related osteoporosis without current pathological fracture COLOGUARD (SCAN ORDER) Routine 02/01/2024 from Last 3 Months or Most Recently Relevant to Health Maintenance Results * MAMMOGRAM GENERIC (SCAN ORDER) (03/16/2024) Anatomical Region Laterality Modality Other 03/16/2024 [facility] Scanned SCANNING Final Resu lt * BONE DENSITY/DEXA (02/15/2024 9:08 AM CDT) Anatomical Region Laterality Modality Bone Mammography 02/15/2024 9:13 AM CDT Impressions 02/15/2024 9:14 AM CDT IMPRESSION: WHO Classification: osteoporosis. FRAX: 3.0% chance of hip fracture and 13% chance of major osteoporotic fracture over the next 10 years. Referred By: JAIMEE RAYGOZA Interpreted By: Rey Llamas MD, 02/15/2024 9:13 AM Narrative 02/15/2024 9:14 AM CDT Examination: Bone Density Axial Exam Date/Time: 02/15/2024 8:44 AM Reason For Exam: Age-related osteoporosis without current pathological fracture Comparison: None Findings: DEXA bone densitometry The bone mineral density (BMD) was determined by dual-energy x-ray absorptiometry, the results are as follows: AP Lumbar Spine L1 through L4 BMD Patient (GM/SQCM): 1.063 T-Score (Standard deviations from young adult peak bone density): 0.1 Left femoral neck: BMD Patient (GM/SQCM): 0.550 T-Score (Standard deviations from young adult peak bone density): -2.7 Total Right femur: BMD Patient (GM/SQCM): 0.795 T-Score (Standard deviations from young adult peak bone density): -1.2 Recommendations: All patients should ensure an adequate intake of dietary calcium and vitamin D. The NOF recommend adults under the age of 50 need 1000 mg of calcium and 400-800 IU of vitamin D daily. Effective therapy for the prevention and treatment of osteoporosis include biphosphonates. Follow-up: People with diagnosed cases of osteoporosis or at high risk for fracture should have regular bone mineral density test. For patients eligible for Medicare, routine testing is allowed once every 2 years. Testing frequency can be increased to one year for patients who have rapidly progressing disease, those who are receiving or discontinuing medical therapy to restore bone mass, or have additional risk factors. Procedure Note Rey Llamas MD - 02/15/2024 Examination: Bone Density Axial Exam Date/Time: 02/15/2024 8:44 AM Reason For Exam: Age-related osteoporosis without current pathological fracture Comparison: None Findings: DEXA bone densitometry The bone mineral density (BMD) was determined bydual-energy x-ray absorptiometry, the results are as follows: AP Lumbar Spine L1 through L4 BMD Patient (GM/SQCM): 1.063 T-Score (Standard deviations from young adult peak bonedensity): 0.1 Left femoral neck: BMD Patient (GM/SQCM): 0.550 T-Score (Standard deviations from young adult peak bonedensity): -2.7 Total Right femur: BMD Patient (GM/SQCM): 0.795 T-Score (Standard deviations from young adult peak bonedensity): -1.2 Recommendations: All patients should ensure an adequate intake of dietary calcium andvitamin D. The NOF recommend adults under the age of 50 need 1000 mg ofcalcium and 400-800 IU of vitamin D daily. Effective therapy for theprevention and treatment of osteoporosis include biphosphonates. Follow-up: People with diagnosed cases of osteoporosis or at high risk for fractureshould have regular bone mineral density test. For patients eligible forMedicare, routine testing is allowed once every 2 years. Testing frequencycan be increased to one year for patients who have rapidly progressingdisease, those who are receiving or discontinuing medical therapy torestore bone mass, or have additional risk factors. IMPRESSION: WHO Classification: osteoporosis. FRAX: 3.0% chance of hip fracture and 13% chance of major osteoporoticfracture over the next 10 years. Referred By: JAIMEE RAYGOZA Interpreted By: Rey Llamas MD, 02/15/2024 9:13 AM us Jaimee Raygoza MUD TANK OPERATOR DEXA Final Resu lt * COLOGUARD (02/01/2024) COLOGUARD NEGATIVE [facility] STOOL 02/01/2024 [facility] Scanned SCANNING Final Resu lt [facility] ONBASE from Last 3 Months or Most Recently Relevant to Health [place] [address] MEDICARE [facility] Advance Directives Documents on File Type Date Recorded Patient [address] Judge Expl anation Advance Directives and Livin g Will 02/15/2025 9:21 AM Care Teams Senior Safety Support Manager Relationship Specialty Start Date End Date Ally Matthews MD [address] [facility] [address] [place] [id number] PCP - General FAMILY PRACTICE 06/09/24 Nica Mccall NP [address] [place] [address] Nurse Practitioner PAIN MANAGEMENT 01/31/25 Jacqueline Hernandez MD [address] [id number] RHEUMATOLOGY 12/18/24
--- OUTSIDE RECORDS SUMMARY | 2025-04-13 15:02 | XMS_ITS | Clinical Summary ---
Author Organization [facility] Address [address] [place] [address] Care Team Providers Care Senior Instrumentation Engineer Name Role Phone Trish Veliz MD Primary Care Provider [phone] Allergies No known active allergies Medications sertraline (ZOLOFT) 50 mg tablet Take by mouth. Active vit A,C and N-ssxcmm-clxzxpo s (OCCUVITE with LUTEIN) 1,000 unit-200 mg-60 unit-2 mg tabletIndication s:Vitamin Deficiency Prevention Take by mouth. Active levothyroxine (SYNTHROID, LEVOTHROID) 50 mcg tablet Take 50 mcg by mouth. Active ibandronate (BONIVA) 150 mg tablet 12/12/2017 Active omeprazole (PriLOSEC) 40 mg capsule 01/04/2018 Active calcium acetate (PHOSLO) 667 mg capsule Take 1,334 mg by mouth 3 (three) times a day with meals. Active Active Problems Problem Noted Date Diagnosed Date Abnormal mammogram 01/12/2018 Surgical History Surgery Date Site/Laterality Comments TONSILLECTOMY 07/27/1962 - 07/26/1963 BREAST BIOPSY Right benign BREAST BIOPSY Right benign BREAST BIOPSY 01/21/2018 Right Medical History Medical History Date Comments Depression Thyroid disease Osteoporosis Arthritis Family History Medical History Relation Name Comments Lung cancer Maternal Grandmother Lung cancer Mother Relation Name Status Comments Maternal Grandmother Mother Social History Tobacco Use Types Packs/Day Years Used Date Smoking Tobacco: Never Smokeless Tobacco: Never Alcohol Use Standard Drinks/Week Comments Yes 0 (1 standard drink = 0.6 oz pur e alcohol) socially Personal Safety Answer Date Recorded Getting School Help Needed Not on file 08/11 Comments Unknown Sex and Gender Information Value Date Recorded Sex Assigned at Not on file 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 Gender Identity Not on file Sexual Orientation Not on file Obstetrics History Para Term AB IAB SAB Ectopic Multiple Livin g Live Births 2 2 2 Date Outcome GA Total Labor Labor/2nd/3rd Weight Sex Type Anes PTL Laura A1 A5 Name Clin Term Term Last Filed Vital Signs Vital Sign Reading Time Taken Comments Blood Pressure - - Pulse - - Temperature - - Respiratory Rate - - Oxygen Saturation - - Inhaled Oxygen Concentration - - Weight 59.9 kg (132 lb) 01/12/2018 1:00 PM CDT Height 170.2 cm (5' 7) 01/12/2018 1:00 PM CDT Body Mass Index 20.67 01/12/2018 1:00 PM CDT Plan of Treatment Health Maintenance Due Date Last Done Comments Colon Cancer Screening-Colonoscopy 1960 Depression Screening 1958 Fall Risk Assessment 1960 Hepatitis C Screening 1960 Hepatitis B Screening 1976 Zoster Vaccine (1 of 2) 2008 Breast Cancer Screening-Mammogram 12/10/2019 12/09/2018, 11/20/2014, 11/20/2014, Additional history exists DTaP/Tdap/Td Vaccine (1 - Tdap) 08/08/2020 1 Covid-19 Vaccine (2 - Jansse n risk series) 11/01/2020 10/04/2020 Pneumococcal vaccine 65+ (2 of 2 - PCV20 or PCV21) 08/07/2021 08/07/2020 Well Visit 65+ 12/27/2023 Influenza Vaccine (#1) 2025 1, 04/05/2019, 05/03/2018, Additional history exists Osteoporosis Screening-Bone Density Scan 02/14/2026 02/15/2024 Procedures Procedure Name Priority Date/Time Associated Diagnosis Comments SCREENING MAMMOGRAM BILATERAL W SAAD Schedule Routine, Read Routine (OP Routine) 12/09/2018 9:54 AM CDT Encounter for screening mammogram for malignant neoplasm of breast from Last 3 Months or Most Recently Relevant to Health Maintenance Results * Screening Mammogram Bilateral W Saad (12/09/2018 9:54 AM CDT) Anatomical Region Laterality Modality Breast Bilateral Mammography Narrative 12/16/2018 12:35 PM CDT Mammogram Technique: Bilateral Digital Breast Tomosynthesis, Bilateral C-view 2D Screening mammogram. Views obtained: bilateral craniocaudal and bilateral mediolateral oblique. Computer Aided Detection was performed. Mammogram Findings: The present examination has been compared to prior imaging studies performed on 11/26/2017 and 11/30/2017, and at [facility] on 01/21/2018. The breasts are extremely dense, which lowers the sensitivity of mammography. There is no suspicious abnormality in either breast. Impression: Annual screening mammography is recommended. OVERALL FINAL ASSESSMENT: BI-RADS CATEGORY 1: Negative. Procedure Note Monae Redman MD - 12/16/2018 Mammogram Technique: Bilateral Digital Breast Tomosynthesis, Bilateral C-view 2D Screening mammogram. Views obtained: bilateral craniocaudal and bilateral mediolateral oblique. Computer Aided Detection was performed. Mammogram Findings: The present examination has been compared to prior imaging studies performed on 11/26/2017 and 11/30/2017, and at [facility] on 01/21/2018. The breasts are extremely dense, which lowers the sensitivity of mammography. There is no suspicious abnormality in either breast. Impression: Annual screening mammography is recommended. OVERALL FINAL ASSESSMENT: BI-RADS CATEGORY 1: Negative. [facility] Doug Veliz MD IM MAMMO PROCEDURES Final Resul t from Last 3 Months or Most Recently Relevant to Health Maintenance Insurance [facility] [place] [address] [facility] [place] [address] [facility] [employer] Care Teams Senior Instrumentation Engineer Relationship Specialty Start Date End Date Trish Veliz MD [address] [place] [address] PCP - General 12/02/17
== END 2025-04-13 14:58 | disposition home or self-care (01) ==
LOC: ANHFOHIMG 15:00
PROVIDERS: PCP Student in an Organized Health Care Education/Training Program; Visit Provider Student in an Organized Health Care Education/Training Program
DX: Z12.31 Encounter for screening mammogram for malignant neoplasm of breast (principal)
CPT/HCPCS: 77063; 77067